=== PATIENT | male | born 1950 | race Caucasian/White ===

== ENCOUNTER 2018-04-03 13:13 | Day surgery (SDC) | payer OTHER ==
[~2018-04-03] VITALS: Ht 172.7 cm; Wt 79.6 kg
[~2018-04-03 13:13] MED LIST: ASPI81CH PO; Advil200 M1 PO; FLEET SUPPOSITORY; Multivitamin1 EAC1 PO; NITR.6SL SL; OMEP20ER PO; OSTEO BI-FLEX1 EACH PO; TESTOSTERONE
[2018-04-03] MEDS ORDERED: PANT40 PO (13:55)
[2018-04-03] MEDS ORDERED: GEMF600 PO (13:55)
== END 2018-04-03 15:41 | disposition home or self-care (01) ==
LOC: ORSCSDS 13:13
PROVIDERS: Internal Medicine Gastroenterology
PROC: 0DB58ZX Excision of Esophagus, Via Natural or Artificial Opening Endoscopic, Diagnostic (ICD-10-PCS; principal; 2018-04-03 14:30)
DX: K21.9 Gastro-esophageal reflux disease without esophagitis (principal); K22.2 Esophageal obstruction; K44.9 Diaphragmatic hernia without obstruction or gangrene; I10 Essential (primary) hypertension; Z79.899 Other long term (current) drug therapy
CPT/HCPCS: 87081; 88305; J7120

== ENCOUNTER → 2020-01-31 | Outpatient (CLI) | payer OTHER ==
[~2020-01-31] MED LIST changes: +GEMF600 PO; +PANT40 PO
[2020-02-01 13:31] LABS: Stool Occult Bld Immuno 1 Negative (NEGATIVE); Stool Occult Bld Immuno 2 Negative (NEGATIVE)
== END | disposition home or self-care (01) ==
LOC: LAB SHORT 13:26 → OLS 13:26
PROVIDERS: Internal Medicine Gastroenterology
DX: Z12.11 Encounter for screening for malignant neoplasm of colon (principal)
CPT/HCPCS: G0328

== ENCOUNTER 2021-01-05 13:23 | Day surgery (SDC) | payer OTHER ==
[~2021-01-05] VITALS: Ht 172.7 cm; Wt 78.2 kg
--- NOTE | 2021-01-05 13:55 | NUR ---
01/05/21 1355 Ariadne Bianchi 2 TRIES RIGHT HAND MOVED,3 TRY RIGHT GOOD
== END 2021-01-05 15:50 | disposition home or self-care (01) ==
LOC: ORSCSDS 13:23
PROVIDERS: Internal Medicine Gastroenterology
PROC: 0DJD8ZZ Inspection of Lower Intestinal Tract, Via Natural or Artificial Opening Endoscopic (ICD-10-PCS; principal; 2021-01-05 14:45)
DX: K59.00 Constipation, unspecified (principal); Z86.010 Personal history of colon polyps; K57.30 Diverticulosis of large intestine without perforation or abscess without bleeding; Z79.82 Long term (current) use of aspirin; Z79.899 Other long term (current) drug therapy
CPT/HCPCS: J2704; J7120

== ENCOUNTER 2021-01-21 13:05 | Day surgery (SDC) | payer OTHER ==
[~2021-01-21] VITALS: Ht 172.7 cm; Wt 78.9 kg
[2021-01-21] MEDS ORDERED: CARBLEV25 SL (13:51)
== END 2021-01-21 17:55 | disposition home or self-care (01) ==
LOC: ORSCSDS 13:05
PROVIDERS: Podiatrist Foot & Ankle Surgery
PROC: 0SGM04Z Fusion of Right Metatarsal-Phalangeal Joint with Internal Fixation Device, Open Approach (ICD-10-PCS; principal; 2021-01-21 14:10)
DX: M20.21 Hallux rigidus, right foot (principal); I25.10 Atherosclerotic heart disease of native coronary artery without angina pectoris; I10 Essential (primary) hypertension; K21.9 Gastro-esophageal reflux disease without esophagitis; I50.9 Heart failure, unspecified; G20 Parkinson's disease; F41.8 Other specified anxiety disorders; Z79.899 Other long term (current) drug therapy; Z79.82 Long term (current) use of aspirin
CPT/HCPCS: A9270; C1713; C1769; J0171; J0690; J1100; J1885; J2405; J2704; J3010; J7120

== ENCOUNTER 2021-08-29 11:43 | Emergency (ER) | payer OTHER ==
[~2021-08-29] VITALS: Ht 172.7 cm; Wt 81.7 kg
[~2021-08-29 11:43] MED LIST changes: +CARBLEV25 SL
[2021-08-29 13:07] LABS: BASOPHILS ABSOLUTE AUTO 0.04 K/mm3 (0.00-0.23); BASOPHILS PERCENT AUTO 1 % (0-2); EOSINOPHILS ABSOLUTE AUTO 0.05 K/mm3 (0.00-0.68); EOSINOPHILS PERCENT AUTO 1 % (0-6); Hematocrit 41.9 % (37.0-53.0); Hemoglobin 14.3 g/dL (13.5-17.5); IMMATURE GRAN ABSOLUTE AUTO 0.02 K/mm3 (0.00-0.10); IMMATURE GRAN PERCENT AUTO 0 % (0-1); LYMPHOCYTES ABSOLUTE AUTO 1.89 K/mm3 (0.84-5.20); LYMPHOCYTES PERCENT AUTO 29 % (21-46); MONOCYTES ABSOLUTE AUTO 0.45 K/mm3 (0.16-1.47); MONOCYTES PERCENT AUTO 7 % (4-13); Mean Corpuscular HGB 30.9 pg (26.0-34.0); Mean Corpuscular HGB Conc 34.1 g/dL (31.5-36.5); Mean Corpuscular Volume 91 fL (80-100); Mean Platelet Volume 9.2 fL (9.1-12.4); NEUTROPHILS ABSOLUTE AUTO 4.14 K/mm3 (1.96-9.15); NEUTROPHILS PERCENT AUTO 63 % (41-73); Platelet Count 174 K/mm3 (150-400); RDW Coefficient Variation 12.7 % (11.7-14.2); RDW Standard Deviation 41.9 fL (35.1-46.3); Red Blood Cell Count 4.63 M/mm3 (4.30-5.90); White Blood Cell Count 6.59 K/mm3 (4.00-11.30)
[2021-08-29 13:34] LABS: Albumin/Globulin Ratio 1.2 (0.8-1.8); Bun/Creatinine Ratio 28.4 (12.0-20.0); Calcium, Blood 8.9 mg/dL (8.5-10.1); Creatinine, Blood 0.99 mg/dL (0.60-1.20); Globulin, Blood 3.3 g/dL (2.2-4.0); Potassium, Blood 4.8 mmol/L (3.5-5.5); Total Protein, Blood 7.3 g/dL (6.4-8.2)
[2021-08-29] MEDS ORDERED: CARBIDOPA-LEVO1 EAC9 (14:28)
[2021-08-29] MEDS ORDERED: EZET10 (14:29)
[2021-08-29] MEDS ORDERED: LINZESS72 MCG PO (14:30)
[2021-08-29] MEDS ORDERED: MAGNESIUM PO (14:31)
== END 2021-08-29 17:41 | disposition home or self-care (01) ==
LOC: ER 11:43
PROVIDERS: Physician Assistant
DX: R42 Dizziness and giddiness (principal); E86.0 Dehydration; M79.604 Pain in right leg; I25.10 Atherosclerotic heart disease of native coronary artery without angina pectoris; K21.9 Gastro-esophageal reflux disease without esophagitis; G20 Parkinson's disease
CPT/HCPCS: 36415; 71046; 80053; 82550; 83735; 83880; 84484; 85025; 93005; 93010; 93971; A9270; J7030

== ENCOUNTER 2021-10-24 12:21 | Day surgery (SDC) | payer OTHER ==
[~2021-10-24] VITALS: Ht 172.7 cm; Wt 78.6 kg
[~2021-10-24 12:21] MED LIST changes: +CARBIDOPA-LEVO1 EAC9; +EZET10; +LINZESS72 MCG PO; +MAGNESIUM PO
--- NOTE | 2021-10-24 13:27 | NUR ---
10/24/21 1327 SENAIT MEADE 30MLS OF ROPIVACAINE 0.2% MIXED WITH 0.15MG OF EPI (1MG/1ML) TO CREATE A LOCAL SOLUTION OF ROPIVACAINE 0.2% WITH EPI 1:200,000. 30MLS OF LOCAL POURED ONTO STERILE FIELD FOR USE DURING SURGERY.
== END 2021-10-24 14:53 | disposition home or self-care (01) ==
LOC: ORSCSDS 12:21
PROVIDERS: Podiatrist Foot & Ankle Surgery
PROC: 0SPM04Z Removal of Internal Fixation Device from Right Metatarsal-Phalangeal Joint, Open Approach (ICD-10-PCS; principal; 2021-10-24 13:30)
DX: T84.84XA Pain due to internal orthopedic prosthetic devices, implants and grafts, initial encounter (principal); I10 Essential (primary) hypertension; E78.5 Hyperlipidemia, unspecified; I25.10 Atherosclerotic heart disease of native coronary artery without angina pectoris; G20 Parkinson's disease; Z79.899 Other long term (current) drug therapy; Z79.82 Long term (current) use of aspirin
CPT/HCPCS: J0171; J0690; J1885; J2250; J2704; J2795; J3010; J7120

== ENCOUNTER 2024-10-31 10:36 | Day surgery (SDC) | payer OTHER ==
[~2024-10-31] VITALS: Ht 172.7 cm; Wt 78.7 kg
[~2024-10-31 10:36] MED LIST changes: +Bupivacaine 0.5% W/EPI 1:200000 SDV 30 ML Vial ONE
[2024-10-31] MEDS ORDERED: CeFAZolin Sodium 2,000 MG VIAL ONE (10:52)
[2024-10-31] MEDS ORDERED: MELATONIN5 M1 PO (11:21)
[2024-10-31] MEDS ORDERED: FLUDROCORTISON0.1 M1 PO (11:22)
[2024-10-31] MEDS ORDERED: REPATHA SU140 MG/1 M SC (11:24)
[2024-10-31] MEDS ORDERED: NAPR500EC PO (11:24)
[2024-10-31 13:31] VITALS: BP 158/94
--- NOTE | 2024-10-31 13:56 | NUR ---
10/31/24 1356 Jovanni Hilliard PT TOOK HOME CARBADOPA/LEVADOPA. ANESTHESIA WROTE ORDERS FOR PT TO TAKE HOME MEDICATION OF CARBADOPA/LEVADOPA AT HIS NORMAL SCHEDULED TIME.
== END 2024-10-31 14:21 | disposition home or self-care (01) ==
LOC: ORSCSDS 10:36
PROVIDERS: Podiatrist Foot & Ankle Surgery
PROC: 0SGP04Z Fusion of Right Toe Phalangeal Joint with Internal Fixation Device, Open Approach (ICD-10-PCS; principal; 2024-10-31 12:30)
PROC: 0SQP0ZZ Repair Right Toe Phalangeal Joint, Open Approach (ICD-10-PCS; principal; 2024-10-31 12:30)
DX: M19.071 Primary osteoarthritis, right ankle and foot (principal); M20.41 Other hammer toe(s) (acquired), right foot; G20.C Parkinsonism, unspecified; K21.9 Gastro-esophageal reflux disease without esophagitis; Z79.899 Other long term (current) drug therapy
CPT/HCPCS: A6253; C1713; C1769; J0690; J2704; J7120

== ENCOUNTER 2025-01-19 12:41 | Emergency (ER) | payer OTHER ==
[~2025-01-19] VITALS: Ht 172.7 cm; Wt 79.4 kg
[~2025-01-19 12:41] MED LIST changes: -Bupivacaine 0.5% W/EPI 1:200000 SDV 30 ML Vial ONE; +FLUDROCORTISON0.1 M1 PO; +MELATONIN5 M1 PO; +NAPR500EC PO; +REPATHA SU140 MG/1 M SC
[2025-01-19 15:06] LABS: BASOPHILS ABSOLUTE AUTO 0.04 K/mm3 (0.00-0.23); BASOPHILS PERCENT AUTO 1 % (0-2); EOSINOPHILS ABSOLUTE AUTO 0.05 K/mm3 (0.00-0.68); EOSINOPHILS PERCENT AUTO 1 % (0-6); Hematocrit 37.5 % (37.0-53.0); Hemoglobin 13.4 g/dL (13.5-17.5); IMMATURE GRAN ABSOLUTE AUTO 0.02 K/mm3 (0.00-0.10); IMMATURE GRAN PERCENT AUTO 0 % (0-1); LYMPHOCYTES ABSOLUTE AUTO 1.99 K/mm3 (0.84-5.20); LYMPHOCYTES PERCENT AUTO 30 % (21-46); MONOCYTES ABSOLUTE AUTO 0.53 K/mm3 (0.16-1.47); MONOCYTES PERCENT AUTO 8 % (4-13); Mean Corpuscular HGB Conc 35.7 g/dL (31.5-36.5); Mean Corpuscular Volume 90 fL (80-100); NEUTROPHILS ABSOLUTE AUTO 3.96 K/mm3 (1.96-9.15); NEUTROPHILS PERCENT AUTO 60 % (41-73); NRBC ABSOLUTE 0.00 K/mm3 (0.00-0.02); NRBC Auto 0.0 /100 WBC (0.0-0.2); Platelet Count 171 K/mm3 (150-400); RDW Coefficient Variation 13.0 % (11.7-14.2); RDW Standard Deviation 42.4 fL (35.1-46.3)
[2025-01-19] MEDS ORDERED: LORazepam 2 MG/ML 1ML Injection IV ONE (15:20)
[2025-01-19 15:29] LABS: Alanine Aminotransfer (ALT/SGP 11.0 U/L (12-78); Albumin, Blood 4.0 g/dL (3.4-5.0); Albumin/Globulin Ratio 1.5 (0.8-1.8); Anion Gap 8.0 mmol/L (3-11); Aspartate Aminotrans (AST/SGOT 28.0 U/L (12-37); Bilirubin, Total 0.8 mg/dL (0.1-1.0); Blood Urea Nitrogen 22.0 mg/dL (8-24); CO2, Blood 32.0 mmol/L (21-32); Calcium, Blood 8.9 mg/dL (8.5-10.1); Chloride, Blood 102.0 mmol/L (98-108); Creatinine, Blood 0.76 mg/dL (0.60-1.20); Globulin, Blood 2.7 g/dL (2.2-4.0); Glucose, Blood 109.0 mg/dL (70-99); Potassium, Blood 3.7 mmol/L (3.5-5.5); Sodium, Blood 138.0 mmol/L (136-145); Total Protein, Blood 6.7 g/dL (6.4-8.2)
[2025-01-19 16:06] LABS: Magnesium, Blood 2.3 mg/dL (1.6-2.4); Thyroid Stimulating Hormone 2.03 uIU/mL (0.360-4.800)
[2025-01-19 17:05] VITALS: BP 191/104
== END 2025-01-19 17:05 | disposition home or self-care (01) ==
LOC: ER 12:41
PROVIDERS: Emergency Medicine; Physician Assistant
DX: G20.A1 Parkinson's disease without dyskinesia, without mention of fluctuations (principal); I25.10 Atherosclerotic heart disease of native coronary artery without angina pectoris; I10 Essential (primary) hypertension; Z79.82 Long term (current) use of aspirin; Z79.899 Other long term (current) drug therapy
CPT/HCPCS: 70450; 80053; 83735; 84439; 84443; 85025; 93005; 93010; 96374; 99284-25; J2060